=== PATIENT | female | born 1975 | race Caucasian/White ===

== ENCOUNTER 2021-11-18 11:09 | Emergency (ER) | payer OTHER ==
[~2021-11-18] VITALS: Wt 92.5 kg
[2021-11-18] MEDS ORDERED: HYDROCODONE-AC1 EAC1 PO (14:13)
== END 2021-11-18 14:17 | disposition home or self-care (01) ==
LOC: ED 11:09
DX: S93.402A Sprain of unspecified ligament of left ankle, initial encounter (principal); Z88.1 Allergy status to other antibiotic agents; W22.8XXA Striking against or struck by other objects, initial encounter; Y93.89 Activity, other specified; Y92.89 Other specified places as the place of occurrence of the external cause; Y99.8 Other external cause status

== ENCOUNTER 2021-11-22 14:55 | Emergency (ER) | payer OTHER ==
[~2021-11-22] VITALS: Wt 92.5 kg
[~2021-11-22 14:55] MED LIST: HYDROCODONE-AC1 EAC1 PO
[2021-11-22] MEDS ORDERED: PANTOPRAZOLE SO40 MG PO (15:28)
[2021-11-22] MEDS ORDERED: MIRTAZAPINE30 M2 PO (15:29)
[2021-11-22] MEDS ORDERED: ROPINIROLE HYDRO1 MG PO (15:29)
[2021-11-22] MEDS ORDERED: PREGABALIN25 MG PO (15:30)
[2021-11-22] MEDS ORDERED: DULOXETINE HCL60 MG PO (15:31)
[2021-11-22] MEDS ORDERED: TYLENOL325 M1 PO (15:52)
[2021-11-22] MEDS ORDERED: NAPROXEN250 MG PO (15:52)
[2021-11-22] MEDS ORDERED: PENICILLIN-VK500 MG PO (15:52)
== END 2021-11-22 16:00 | disposition home or self-care (01) ==
LOC: ED 14:55
DX: K02.9 Dental caries, unspecified (principal); Z88.1 Allergy status to other antibiotic agents; Z90.710 Acquired absence of both cervix and uterus; Z98.890 Other specified postprocedural states

== ENCOUNTER → 2022-01-28 | Outpatient (CLI) | payer OTHER ==
[~2022-01-28] MED LIST changes: +DULOXETINE HCL60 MG PO; +MIRTAZAPINE30 M2 PO; +NAPROXEN250 MG PO; +PANTOPRAZOLE SO40 MG PO; +PENICILLIN-VK500 MG PO; +PREGABALIN25 MG PO; +ROPINIROLE HYDRO1 MG PO; +TYLENOL325 M1 PO
[2022-01-28 09:43] LABS: BASO % 0.5 % (0.0-1.0); EOS # 0.6 10*3/uL (0.0-0.4); EOS % 7.1 % (1.0-4.0); HEMATOCRIT 39.8 % (37.0-47.0); LYMPH # 3.3 10*3/uL (1.3-4.4); LYMPH % 40.1 % (27.0-41.0); MEAN CORPUSCULAR HGB 30.8 pg (27.0-31.0); MEAN CORPUSCULAR HGB CONC 33.2 g/dl (33.0-37.0); MEAN PLATELET VOLUME 10.9 fl (9.6-12.3); MONO # 0.5 10*3/uL (0.1-1.0); MONO % 5.8 % (3.0-9.0); NEUT # 3.8 10*3/uL (2.3-7.9); PLATELET COUNT AUTOMATED 139 10*3/uL (130-400); RED BLOOD COUNT 4.28 10*6/uL (4.10-5.10); RED CELL DISTRI WIDTH 14.7 % (0-14.5); WHITE BLOOD COUNT 8.2 10*3/uL (4.8-10.8)
[2022-01-28 10:09] LABS: BUN 20 mg/dl (7-24); CHLORIDE 111 mmol/L (98-107); CHOLESTEROL 265 mg/dL (<200); CREATININE 0.71 mg/dL (0.55-1.02); POTASSIUM 4.1 mmol/L (3.5-5.1); SGOT/AST 10 IU/L (3-35); SGPT/ALT 22 U/L (12-78); SODIUM 140 mmol/L (136-145); TOTAL PROTEIN 6.8 gm/dL (6.4-8.2)
[2022-01-28 10:10] LABS: ALKALINE PHOSPHATASE 110 U/L (45-117); LDL CHOLESTEROL 151 mg/dL (9-159)
[2022-01-29 08:07] LABS: HBSAG Negative (Negative); HEP B CORE AB, IGM Negative (Negative); HEPATITIS A AB IGM Negative (Negative)
[2022-01-31 20:06] LABS: HEPATITIS C ANTIBODY >11.0 (0.0-0.9)
== END | disposition home or self-care (01) ==
LOC: LAB 09:20
DX: F19.20 Other psychoactive substance dependence, uncomplicated (principal); Z13.6 Encounter for screening for cardiovascular disorders; Z13.1 Encounter for screening for diabetes mellitus; Z11.59 Encounter for screening for other viral diseases